=== PATIENT | female | born 1995 | race African-American/Black ===

== ENCOUNTER 2023-08-22 21:49 | Observation (INO) | payer OTHER, BC ==
[2023-08-22 22:03] VITALS: BMI 37.8
[2023-08-22] MEDS ORDERED: hydrALAZINE 20 MG/ML VIAL SLOW IVP PRN (22:31)
[2023-08-22] MEDS ORDERED: Lactated Ringer's 1,000 ML IV SCH (22:45)
[2023-08-22 23:00] LABS: #Eosinphils 0.1 10x3/uL (0.0-0.5); #Monocytes 0.5 10x3/uL (0.0-1.1); #Neutrophils 3.6 10x3/uL (1.5-8.4); %Basophils 0.4 % (0.0-2.0); %Eosinophils 1.2 % (0.0-6.0); %Lymphocytes 25.2 % (18.0-47.0); %Monocytes 8.3 % (0.0-10.0); %Neutrophils 64.4 % (40.0-75.0); Hemoglobin 10.7 g/dL (12.0-15.5); Mean Corpuscular HGB CONC 33.4 g/dL (32.0-36.0); Mean Corpuscular Hemoglobin 29.3 pg (27.0-33.0); Mean Corpuscular Volume 87.7 fl (81.6-98.3); Mean Platelet Volume 11.7 fl (7.4-10.4); Platelet Count 160 10x3/uL (150-450); Red Blood Cell (RBC) Count 3.65 10x6/uL (3.90-5.03); White Blood Cell (WBC) Count 5.6 10x3/uL (3.5-10.5)
[2023-08-22 23:19] LABS: ALT (SGPT) 22 U/L (8-55); AST (SGOT) 31 U/L (5-34); Albumin 3.3 g/dL (3.5-5.0); Alkaline Phosphatase 162 U/L (40-110); Anion Gap 15 mmol/L (10-20); BUN (Urea Nitrogen) 4 mg/dL (7.0-18.7); Bilirubin, Total 0.5 mg/dL (0.2-1.2); Calc. Creatinine Clearance 185 mL/min (70-130); Calcium 8.7 mg/dL (7.8-10.44); Carbon Dioxide 20 mmol/L (22-29); Chloride 106 mmol/L (98-107); Estimated GFR 119; Glucose 81 mg/dL (70-105); Potassium 3.8 mmol/L (3.5-5.1); Protein, Total 6.3 g/dL (6.0-8.3); Sodium 137 mmol/L (136-145)
[2023-08-22 23:45] LABS: Bilirubin Neg (Negative); Blood, Urine Negative (Negative); Clarity Clear (Clear); Glucose, Urine (Dipstick) Normal (Negative); Ketone, Urine 50 mg/dL (Negative); Leukocyte Negative (Negative); Nitrite Negative (Negative); Protein, Urine (Dipstick) 15 mg/dl (Neg-Trace); Specific Gravity, Urine 1.015 (1.005-1.030); pH, Urine 6.5 (5.0-9.0)
[2023-08-23 00:57] LABS: Bacteria/HPF None Seen HPF (None Seen); CAUTI Indications for Culture Pregnancy; RBC/HPF 0-3 HPF (0-3); Squamous Epithelial 0-3 HPF (0-3); WBC/HPF 0-3 HPF (0-3)
[2023-08-23 00:58] LABS: Urine Culture Reflex Yes Yes
[2023-08-23] MEDS ORDERED: fentaNYL 50 mcg/mL 1 mL Vial SLOW IVP PRN (03:55)
[2023-08-23] MEDS ORDERED: Misoprostol 200 MCG TAB PR PRN (03:55)
[2023-08-23] MEDS ORDERED: hydrALAZINE 20 MG/ML VIAL SLOW IVP PRN (03:55)
[2023-08-23] MEDS ORDERED: Promethazine HCl 25 MG/ML VIAL IM PRN (03:55)
[2023-08-23] MEDS ORDERED: Methylergonovine 0.2 MG/ML VIAL IM PRN (03:55)
[2023-08-23] MEDS ORDERED: Carboprost 250 MCG/ML AMP IM PRN (03:55)
[2023-08-23] MEDS ORDERED: Diphenoxylate HCl/Atropine Tablet PO PRN (03:55)
[2023-08-23] MEDS ORDERED: Tranexamic Acid 1,000 MG/10 ML VIAL IVP PRN (03:55)
[2023-08-23] MEDS ORDERED: Ondansetron PF 4 MG/2 ML Vial IVP PRN (03:55)
[2023-08-23] MEDS ORDERED: Acetaminophen 500 MG TAB PO PRN (03:55)
[2023-08-23] MEDS ORDERED: Oxytocin 30 units/NS 500 ML 500 ML IV SCH (04:00)
[2023-08-23] MEDS ORDERED: Dextrose 5%-Lactated Ringers 1,000 ML IV SCH (04:00)
[2023-08-23 06:06] LABS: Syphilis Antibody Nonreactive (Nonreactive); Syphilis Antibody Index 0.07 S/CO (<1.00 Non-Reactive)
[2023-08-23 06:08] LABS: HBSAg Index 0.63 S/CO (0-0.99); Hep B Surf Ag - L&D Non-Reactive S/CO (NonReactive)
== END 2023-08-23 07:47 | disposition home or self-care (01) ==
LOC: CSHLD/OP 21:49 → CSHLD 08-23 04:19
PROVIDERS: ADMIT Family Medicine; ATTEND Family Medicine
DX: O47.03 False labor before 37 completed weeks of gestation, third trimester (principal); O99.343 Other mental disorders complicating pregnancy, third trimester; F41.9 Anxiety disorder, unspecified; F32.A Depression, unspecified; F43.10 Post-traumatic stress disorder, unspecified; Z79.899 Other long term (current) drug therapy; Z88.2 Allergy status to sulfonamides; Z3A.36 36 weeks gestation of pregnancy; W01.0XXA Fall on same level from slipping, tripping and stumbling without subsequent striking against object, initial encounter
CPT/HCPCS: 36415; 76819; 80053; 81001; 85025; 85460; 86780; 86850; 86900; 86901; 87086; 87340; 96360; 96361; 99283; G0378

== ENCOUNTER 2023-09-01 01:44 | Inpatient (IN) | payer BC ==
[2023-09-01] MEDS ORDERED: fentaNYL 50 mcg/mL 1 mL Vial ONE (02:05)
[2023-09-01 02:10] VITALS: BMI 37.8
[2023-09-01] MEDS ORDERED: fentaNYL/Ropivacaine Epidural 100 ML ONE (02:14)
[2023-09-01] MEDS ORDERED: fentaNYL 50 mcg/mL 1 mL Vial SLOW IVP PRN (02:20)
[2023-09-01] MEDS ORDERED: Tranexamic Acid 1,000 MG/10 ML VIAL IVP PRN (02:21)
[2023-09-01] MEDS ORDERED: Promethazine HCl 25 MG/ML VIAL IM PRN ×2 (02:30→03:08)
[2023-09-01] MEDS ORDERED: Lactated Ringer's 1,000 ML IV SCH (02:30)
[2023-09-01] MEDS ORDERED: Carboprost 250 MCG/ML AMP IM PRN (02:30)
[2023-09-01] MEDS ORDERED: Ondansetron PF 4 MG/2 ML Vial IVP PRN ×3 (02:30→05:56)
[2023-09-01] MEDS ORDERED: Oxytocin 30 units/NS 500 ML 500 ML IV SCH (02:30)
[2023-09-01] MEDS ORDERED: Methylergonovine 0.2 MG/ML VIAL IM PRN (02:30)
[2023-09-01] MEDS ORDERED: Acetaminophen 500 MG TAB PO PRN (02:30)
[2023-09-01] MEDS ORDERED: Misoprostol 200 MCG TAB RC PRN (02:30)
[2023-09-01] MEDS ORDERED: Diphenoxylate HCl/Atropine Tablet PO PRN (02:30)
[2023-09-01] MEDS ORDERED: Oxytocin 30 units/NS 500 ML 500 ML IVPB SCH (02:30)
[2023-09-01] MEDS ORDERED: hydrALAZINE 20 MG/ML VIAL SLOW IVP PRN ×2 (02:30→05:56)
[2023-09-01] MEDS ORDERED: Lidocaine 1% (PF) 30 ML VIAL SC PRN (02:30)
[2023-09-01 02:38] LABS: Hematocrit 32.3 % (34.9-44.5); Hemoglobin 11.1 g/dL (12.0-15.5); Mean Corpuscular HGB CONC 34.4 g/dL (32.0-36.0); Mean Corpuscular Hemoglobin 29.8 pg (27.0-33.0); Mean Corpuscular Volume 86.6 fl (81.6-98.3); Platelet Count 164 10x3/uL (150-450); Red Blood Cell (RBC) Count 3.73 10x6/uL (3.90-5.03); White Blood Cell (WBC) Count 6.4 10x3/uL (3.5-10.5)
[2023-09-01 03:08] LABS: Syphilis Antibody Nonreactive (Nonreactive); Syphilis Antibody Index 0.07 S/CO (<1.00 Non-Reactive)
[2023-09-01] MEDS ORDERED: ePHEDrine Sulfate 50 MG/10 ML VIAL SLOW IVP PRN (03:08)
[2023-09-01] MEDS ORDERED: Moisturizing Cream (Eucerin) 113 GM JAR TOP PRN (03:08)
[2023-09-01] MEDS ORDERED: Acetaminophen 325 MG TAB PO PRN (03:08)
[2023-09-01] MEDS ORDERED: diphenhydrAMINE 50 MG/ML VIAL IVP PRN (03:08)
[2023-09-01] MEDS ORDERED: Lactated Ringer's 500 ML IV PRN (03:08)
[2023-09-01] MEDS ORDERED: Naloxone HCl 0.4 mg/ml Vial IVP PRN ×2 (03:08)
[2023-09-01 03:10] LABS: HBSAg Index 0.69 S/CO (0-0.99); Hep B Surf Ag - L&D Non-Reactive S/CO (NonReactive)
[2023-09-01] MEDS ORDERED: Communication Order-Pharmacy FS SCH (03:15)
[2023-09-01] MEDS ORDERED: fentaNYL 2 mcg/Ropivacaine 0.2% Epidural 100 ML CADD EPIDURAL SCH (03:15)
[2023-09-01] MEDS ORDERED: diphenhydrAMINE 25 MG CAP PO PRN (05:56)
[2023-09-01] MEDS ORDERED: Boostrix 0.5 ML (Tdap) VIAL (>/=7 yrs of age) IM ONE (05:56)
[2023-09-01] MEDS ORDERED: Milk Of Magnesia 30 ML UDCUP PO PRN (05:56)
[2023-09-01] MEDS ORDERED: Lanolin Ointment 7 GM TUBE TOP PRN (05:56)
[2023-09-01] MEDS ORDERED: Benzocaine-Menthol 82.5 ML CAN TOP PRN (05:56)
[2023-09-01] MEDS ORDERED: Bisacodyl 10 MG SUPP PR PRN (05:56)
[2023-09-01] MEDS: Ibuprofen 800 MG TAB PO SCH ×3 (06:20→21:25)
[2023-09-01] MEDS: HYDROcodone/Acetaminophen 5/325 mg Tablet PO PRN ×3 (06:20→19:43)
[2023-09-01] MEDS: Prenatal Vitamin 1 TAB PO SCH (09:00)
[2023-09-01] MEDS: Docusate 100 MG CAP PO SCH ×2 (09:00→21:27)
[2023-09-01] MEDS: Ferrous Sulfate 325 MG TAB PO SCH ×2 (09:00→17:21)
[2023-09-01] MEDS ORDERED: HYDROcodone/Acetaminophen 5/325 mg Tablet PO PRN (12:47)
[2023-09-02] MEDS: HYDROcodone/Acetaminophen 5/325 mg Tablet PO PRN ×4 (05:12→21:42)
[2023-09-02] MEDS: Ibuprofen 800 MG TAB PO SCH ×3 (05:12→21:40)
[2023-09-02] MEDS: Docusate 100 MG CAP PO SCH ×2 (09:46→21:40)
[2023-09-02] MEDS: Prenatal Vitamin 1 TAB PO SCH (09:46)
[2023-09-02] MEDS: Ferrous Sulfate 325 MG TAB PO SCH ×2 (09:47→19:33)
[2023-09-02 12:06] VITALS: TEMP 97.9
[2023-09-02 22:01] VITALS: BP 107/56
[2023-09-03] MEDS: Ibuprofen 800 MG TAB PO SCH ×2 (06:17→13:39)
[2023-09-03] MEDS: HYDROcodone/Acetaminophen 5/325 mg Tablet PO PRN ×2 (06:17→14:21)
[2023-09-03] MEDS: Prenatal Vitamin 1 TAB PO SCH (08:22)
[2023-09-03] MEDS: Docusate 100 MG CAP PO SCH (08:22)
== END 2023-09-03 15:29 | disposition home or self-care (01) | DRG 807 ==
LOC: CSHLD 01:44 → CSHPP 08:20
PROVIDERS: ADMIT Family Medicine; ATTEND Family Medicine
PROC: 10E0XZZ Delivery of Products of Conception, External Approach (ICD-10-PCS; principal; 2023-09-01)
PROC: 0UQMXZZ Repair Vulva, External Approach (ICD-10-PCS; 2023-09-01)
DX: O42.02 Full-term premature rupture of membranes, onset of labor within 24 hours of rupture (principal); Z37.0 Single live birth; Z3A.37 37 weeks gestation of pregnancy; F32.A Depression, unspecified; O99.344 Other mental disorders complicating childbirth; Z88.2 Allergy status to sulfonamides; Z79.899 Other long term (current) drug therapy; O70.0 First degree perineal laceration during delivery
CPT/HCPCS: 36415; 85027; 86780; 86850; 86900; 86901; 87340; J3010